=== PATIENT | male | born 1960 | race African-American/Black ===

== ENCOUNTER 2021-07-17 15:57 | Emergency (ER) | payer OTHER ==
[~2021-07-17] VITALS: Ht 177.8 cm; Wt 85.1 kg
[2021-07-17 16:07] VITALS: BP 166/118
[2021-07-17] MEDS ORDERED: DIPH,PERTUSS(ACELL),TET VAC/PF 0.5 ML SYRINGE. VAX IM ONE (16:15)
--- NOTE | 2021-07-17 16:32 | PHYS DOC ---
Past History Past Surgical History: No Surgical History Alcohol Use: None General Adult EDM: Chief Complaint: LACERATION/AVULSION HPI: HPI: 61-year-old male presents with left forearm laceration. He was cutting some carpet and was not taking tension and started cutting toward himself. The knife slipped and he lacerated his forearm. The bleeding is controlled prior to arri michelle with direct pressure. Patient denies any other injuries. His tetanus is not up-to-date. Review of Systems: Review of Systems: Constitutional: Denies fever or chills Eyes: Denies change in visual acuity HENT: Denies nasal congestion or sore throat Respiratory: Denies cough or shortness of breath Cardiovascular: Denies chest pain or edema GI: Denies abdominal pain, nausea, vomiting, bloody stools or diarrhea : Denies dysuria Musculoskeletal: Denies back pain or joint pain Integument: Laceration left forearm Neurologic: Denies headache, focal weakness or sensory changes Endocrine: Denies polyuria or polydipsia Lymphatic: Denies swollen glands Psychiatric: Denies depression or anxiety Current Medications: Current Meds: Current Medications Medications (Trade) Dose Ordered Sig/Bruno Start Time Stop Time Status Last Admin Dose Admin Diphtheria/ Pertussis/Tetanus Vacc (ADACEL TDap SYRINGE) 0.5 ml ONCE ONCE 07/17/21 16:15 07/17/21 16:16 DC 07/17/21 16:18 0.5 ML Allergies: Allergies: Allergies Coded Allergies Type Severity Reaction Last Updated Verified No Known Drug Allergies 07/17/21 No Physical Exam: PE: Constitutional: Well developed, well nourished, no acute distress, non-toxic appearance. [] HENT: Normocephalic, atraumatic, bilateral external ears normal, oropharynx moist, no oral exudates, nose normal. [] Eyes: PERRLA, EOMI, conjunctiva normal, no discharge. [] Neck: Normal range of motion, no tenderness, supple, no stridor. [] Cardiovascular:Heart rate regular rhythm, no murmur [] Lungs & Thorax: Bilateral breath sounds clear to auscultation [] Abdomen: Bowel sounds normal, soft, no tenderness, no masses, no pulsatile masses. [] Skin: 2 cm laceration of the left forearm [] Back: No tenderness, no CVA tenderness. [] Extremities: No tenderness, no cyanosis, no clubbing, ROM intact, no edema. [] Neurologic: Alert and oriented X 3, normal motor function, normal sensory function, no focal deficits noted. [] Psychologic: Affect normal, judgement normal, mood normal. [] Current Patient Data: Vital Signs: Vital Signs Date Time Temp Pulse Resp B/P (MAP) Pulse Ox O2 Delivery O2 Flow Rate FiO2 07/17/21 16:07 103 20 166/118 100 EKG: EKG: [] Radiology/Procedures: Radiology/Procedures: [] Heart Score: C/O Chest Pain: N/A Risk Factors: Risk Factors: DM, Current or recent (<one month) smoker, HTN, HLP, family history of CAD, obesity. Risk Scores: Score 0 - 3: 2.5% MACE over next 6 weeks - Discharge Home Score 4 - 6: 20.3% MACE over next 6 weeks - Admit for Clinical Observation Score 7 - 10: 72.7% MACE over next 6 weeks - Early Invasive Strategies Course & Med Decision Making: Course & Med Decision Making Pertinent Labs and Imaging studies reviewed. (See chart for details) The patient had a forearm laceration. I repaired the wound. See laceration note below for more details. I have seen the patient previously and prescribed him lisinopril for blood pressure. The patient misplaced that prescription and has not taken the pills in the last 2 weeks. He has insurance now but does not have an appointment yet with primary care. He has requested that I refill this medication in his as needed Klonopin. I told him that I can give him a short course of these medications. He also has some dental caries that look infected. I will treat him with Augmentin for 7 days for these. This will also cover po tential infection from his laceration. His tetanus was updated in the ED. He is stable for discharge at this time. [] Dragon Disclaimer: Dragmeghan Disclaimer: This electronic medical record was generated, in whole or in part, using a voice recognition dictation system. Laceration Repair Lac Repair Indication: [] 2 cm laceration of the left forearm Procedure: I obtained verbal consent from the patient for suture repair of the patient's left forearm laceration. The wound was thoroughly irrigated with normal saline under pressure. No foreign bodies were found. I anesthetized the wound with 1% lidocaine. Once good anesthesia was achieved, I repaired it with 4-0 Ethilon suture in interrupted fashion. There were 3 total sutures. Total repaired wound length: 2 cm. Other Items: None The patient tolerated the procedure well. Complications: None Departure Departure: Impression: Primary Impression: Laceration Additional Impressions: Hypertension Insomnia Dental infection Disposition: HOME / SELF CARE / HOMELESS Condition: IMPROVED Referrals: PCP,NO (PCP) Patient Instructions: Laceration Care, Adult, [id number] Scripts Clonazepam (KLONOPIN) 0.5 Mg Tablet 1 TAB PO DAILY PRN for INSOMNIA, #10 TAB Prov: JUANPABLO HAGEN DO 07/17/21 Lisinopril (LISINOPRIL) 20 Mg Tablet 1 TAB PO DAILY for hypertension, #30 TAB 0 Refills Prov: JUANPABLO HAGEN DO 07/17/21 Amoxicillin/Potassium Clav (AUGMENTIN 875-125 TABLET) 1 Each Tablet 1 TAB PO BID for dental infection for 7 Days, #14 TAB 0 Refills Prov: JUANPABLO HAGEN DO 07/17/21 JUANPABLO HAGEN DO Jul 17, 2021 16:32
[2021-07-17] MEDS ORDERED: CLON0.5T PO (16:57)
[2021-07-17] MEDS ORDERED: AMOX1TAB61 PO (16:57)
[2021-07-17] MEDS ORDERED: LISI20TA18 PO (16:57)
== END 2021-07-17 17:05 | disposition home or self-care (01) ==
LOC: ER 15:57
DX: S51.812A Laceration without foreign body of left forearm, initial encounter (principal); I10 Essential (primary) hypertension; G47.00 Insomnia, unspecified; K04.7 Periapical abscess without sinus; W26.0XXA Contact with knife, initial encounter; Y93.89 Activity, other specified; Y92.89 Other specified places as the place of occurrence of the external cause; Y99.8 Other external cause status
CPT/HCPCS: 12001; 90471; 90715; 99283

== ENCOUNTER 2021-08-01 12:19 | Emergency (ER) | payer OTHER ==
[~2021-08-01] VITALS: Ht 177.8 cm; Wt 85.1 kg
[2021-08-01 12:19] VITALS: BP 186/116
[~2021-08-01 12:19] MED LIST: AMOX1TAB61 PO; CLON0.5T PO; LISI20TA18 PO
--- NOTE | 2021-08-01 12:40 | PHYS DOC ---
Past History Past Surgical History: No Surgical History Alcohol Use: None Adult General Chief Complaint Chief Complaint: SUTURE/STAPLE REMOVAL HPI HPI Patient is a 61-year-old male presents emergency department seeking suture removal. Patient reports having sutures placed 14 days ago to his left forearm. Patient states he has 3 sutures. Patient denies any problems, states it looks like it is healed fine. Denies pain, swelling, numbness or tingling. Patient denies any other physical complaints or physical concerns. Patient reports his tetanus immunization was less than 5 years ago. Review of Systems Review of Systems 14 body systems of review of systems have been reviewed. See HPI for pertinent positives and negative responses, otherwise all other systems are negative, nonpertinent or noncontributory. Constitutional: Negative except as outlined in HPI above. Skin: Negative except as outlined in HPI above. Eyes: Negative except as outlined in HPI above. HENT: Negative except as outlined in HPI above. Respiratory: Negative except as outlined in HPI above. Cardiovascular: Negative except as outlined in HPI above. GI: Negative except as outlined in HPI above. : Negative except as outlined in HPI above. Musculoskeletal: Negative except as outlined in HPI above. Integument: Negative except as outlined in HPI above. Neurologic: Negative except as outlined in HPI above. Endocrine: Negative except as outlined in HPI above. Lymphatic: Negative except as outlined in HPI above. Psychiatric: Negative except as outlined in HPI above. Allergies Allergies Allergies Coded Allergies Type Severity Reaction Last Updated Verified No Known Drug Allergies 07/17/21 No Physical Exam Physical Exam Constitutional: Well developed, well nourished, no acute distress, non-toxic appearance. 61-year-old male in no apparent distress. HENT: Normocephalic, atraumatic. Eyes: Conjunctiva normal, no discharge. Neck: Normal range of motion, no stridor. Cardiovascular: No cyanosis appreciated, distal cap refill less than 2 seconds. Lungs & Thorax: Patient is in no respiratory distress, no audible adventitious lung sounds appreciated. Abdomen: Nontender, no abnormalities noted. Skin: Warm, dry, no erythema, no rash. 3 sutures to left distal forearm, edges well approximated, no drainage or infectious process appreciated, no erythema, no swelling, no edema. 3 interrupted nylon sutures. Back: No tenderness, no deformities. Extremities: No tenderness, no cyanosis, no clubbing, ROM intact, no edema. [] Neurologic: Alert and oriented X 3, normal motor function, normal sensory function, no focal deficits noted. Psychologic: Affect normal, judgement normal, mood normal. EKG EKG [] Radiology/Procedures Radiology/Procedures [] Heart Score C/O Chest Pain: No Risk Factors: Risk Factors: DM, Current or recent (<one month) smoker, HTN, HLP, family history of CAD, obesity. Risk Scores: Risk Factors: DM, Current or recent (<one month) smoker, HTN, HLP, family history of CAD, obesity. Course & Med Decision Making Course & Med Decision Making Pertinent Labs and Imaging studies reviewed. (See chart for details) 61-year-old male, vital signs reviewed, presents emergency department for suture removal. Patient did have elevated blood pressure, however patient reports he takes lisinopril and took his medication just prior to arrival to the ER today. Patient reports he has an appointment with his primary care physician this coming week. ED nursing to remove sutures. Upon reevaluation of the patient, no drainage or bleeding from suture removal site, discussed with patient ongoing wound care at home. Strict follow-up with PCP this week. Patient is amenable to ED discharge planning. Discussed with the patient all findings and diagnostic testing as well as the need to follow-up with their primary care provider for further evaluation and treatment or return to the ED if any new or worsening symptoms. Strict return precautions were also discussed at length, the patient voiced understanding and agreement with the discharge planning. The patient was nontoxic in appearance, in no apparent distress, and hemodynamically stable at the time of disposition. Dragon Disclaimer Dragon Disclaimer This electronic medical record was generated, in whole or in part, using a voice recognition dictation system. Departure Departure: Impression: Primary Impression: Encounter for removal of sutures Disposition: HOME / SELF CARE / HOMELESS Condition: GOOD Referrals: PCP,NO (PCP) Additional Instructions: You were seen today in the emergency department for removal of sutures. 3 sutures were removed. There are no signs of infection. Please keep clean and d ry and continue wound care until completely healed. Please follow-up with your primary care physician Dr. Duarte as scheduled to discuss your blood pressure problems. Please continue to take your home medications as directed. Thank you for visiting our Emergency Department. It was a pleasure taking care of you today in the emergency department and we appreciate you trusting us with your care. If any additional problems come up don't hesitate to return to visit us. Please follow up with your primary care provider so they can plan additional care if needed and know about the problem that you had. If symptoms worsen come back to the Emergency Department. Any concerning symptoms that start such as chest pain, shortness of air, weakness or numbness on one side of the body, running high fevers or any other concerning symptoms return to the ER. DEYSI BUCHANAN APRN Aug 01, 2021 12:40
== END 2021-08-01 12:43 | disposition home or self-care (01) ==
LOC: ER 12:19
DX: S51.812D Laceration without foreign body of left forearm, subsequent encounter (principal); X58.XXXD Exposure to other specified factors, subsequent encounter
CPT/HCPCS: 99281; 99282